=== PATIENT | female | born 1990 | race American Indian/Alaskan Native ===

== ENCOUNTER 2018-10-19 16:39 | Emergency (ER) | payer MEDICAID ==
[~2018-10-19] VITALS: Ht 170.2 cm; Wt 65.9 kg
[~2018-10-19 16:39] MED LIST: AMO250C PO; NO HOME MEDS; ONDA4TAB59 PO; ZOF4T PO
[2018-10-19 16:53] VITALS: BP 131/88
[2018-10-19] MEDS ORDERED: LIDOcaine 1% w/epiNEPHrine 1:200,000 30ml vial IM ONE (17:55)
[2018-10-19] MEDS ORDERED: SULF1TAB49 PO (17:56)
== END 2018-10-19 18:51 | disposition left against medical advice (07) ==
LOC: ER 16:39
DX: L02.511 Cutaneous abscess of right hand (principal); F12.90 Cannabis use, unspecified, uncomplicated; Z79.2 Long term (current) use of antibiotics; Z79.899 Other long term (current) drug therapy
CPT/HCPCS: 99283

== ENCOUNTER 2019-11-03 12:04 | Emergency (ER) | payer MEDICAID ==
[~2019-11-03] VITALS: Ht 170.2 cm; Wt 66.0 kg
[2019-11-03 12:39] VITALS: BP 134/89
[2019-11-03 12:50] LABS: CLARITY,URINE CLOUDY (Clear); COLOR,URINE BROWN (Yellow)
[2019-11-03 12:51] LABS: UA COLLECTION TYPE CLN CATCH MIDSTREAM
[2019-11-03 12:59] LABS: BACTERIA,URINE 2+ /HPF (Neg); MUCUS STRANDS NONE SEEN /LPF (Neg); RBC,URINE TNTC /HPF (0-2); SQUAMOUS EPITHELIAL CELL,UR NONE SEEN /LPF (FEW); WBC,URINE 50-100 /HPF (0-4)
[2019-11-03 13:00] LABS: WBC CLUMPS,URINE MODERATE /HPF (NEGATIVE)
[2019-11-03] MEDS ORDERED: CEPH250T PO (13:06)
[2019-11-03] MEDS ORDERED: PHEN-786 PO (13:06)
== END 2019-11-03 13:13 | disposition home or self-care (01) ==
LOC: ER 12:04
DX: N39.0 Urinary tract infection, site not specified (principal); F12.90 Cannabis use, unspecified, uncomplicated; Z79.2 Long term (current) use of antibiotics; Z79.899 Other long term (current) drug therapy
CPT/HCPCS: 81001; 87077; 87088; 87186; 99283

== ENCOUNTER 2020-01-04 19:49 | Emergency (ER) | payer MEDICAID, OTHER ==
[~2020-01-04] VITALS: Ht 170.2 cm; Wt 63.6 kg
[~2020-01-04 19:49] MED LIST changes: +PHEN-786 PO
[2020-01-04 19:52] VITALS: BP 156/81
[2020-01-04] MEDS ORDERED: LACT1CAP75 PO (20:51)
[2020-01-04] MEDS ORDERED: PENI500T2 PO (20:51)
== END 2020-01-04 21:02 | disposition home or self-care (01) ==
LOC: ER 19:49
DX: K02.9 Dental caries, unspecified (principal); F12.90 Cannabis use, unspecified, uncomplicated; Z79.2 Long term (current) use of antibiotics; Z79.899 Other long term (current) drug therapy
CPT/HCPCS: 99283

== ENCOUNTER 2020-05-19 11:43 | Emergency (ER) | payer MEDICAID ==
[~2020-05-19] VITALS: Ht 170.2 cm; Wt 59.0 kg
[~2020-05-19 11:43] MED LIST changes: +LACT1CAP75 PO
[2020-05-19 12:05] VITALS: BP 112/73
[2020-05-19] MEDS ORDERED: SULF1TAB49 PO (13:20)
[2020-05-19] MEDS ORDERED: CEPH-572 PO (13:20)
== END 2020-05-19 13:29 | disposition home or self-care (01) ==
LOC: ER 11:43
DX: L02.212 Cutaneous abscess of back [any part, except buttock and flank] (principal); F17.200 Nicotine dependence, unspecified, uncomplicated; F12.90 Cannabis use, unspecified, uncomplicated; Z79.2 Long term (current) use of antibiotics; Z72.89 Other problems related to lifestyle; Z79.899 Other long term (current) drug therapy
CPT/HCPCS: 99283

== ENCOUNTER 2021-04-02 18:49 | Emergency (ER) | payer MEDICAID | END 2021-04-02 23:19 | disposition left against medical advice (07) | LOC: ER 18:49 | DX: L02.91 Cutaneous abscess, unspecified (principal); Z53.21 Procedure and treatment not carried out due to patient leaving prior to being seen by health care provider ==